=== PATIENT | female | born 1975 | race African-American/Black ===

== ENCOUNTER 2020-11-30 14:29 | Emergency (ER) | payer MEDICAID, SELFPAY ==
[2020-11-30] MEDS ORDERED: Sodium Chloride 0.9% 1,000 ML ONE (15:16)
[2020-11-30] MEDS ORDERED: diphenhydrAMINE 50 MG/ML VIAL ONE (15:16)
[2020-11-30] MEDS ORDERED: Metoclopramide HCl 10 MG/2 ML VIAL ONE (15:16)
== END 2020-11-30 16:35 | disposition home or self-care (01) ==
LOC: NAV ERS 14:29
DX: G43.909 Migraine, unspecified, not intractable, without status migrainosus (principal); E86.0 Dehydration; R00.0 Tachycardia, unspecified; I10 Essential (primary) hypertension; E11.9 Type 2 diabetes mellitus without complications; Z79.899 Other long term (current) drug therapy
CPT/HCPCS: 71045; 93005; 96365; 96375; J1200; J2765; J7050